=== PATIENT | female | born 1980 | race Caucasian/White ===

== ENCOUNTER 2016-12-24 08:57 | Inpatient (IN) | payer BC ==
[2016-12-22 15:40] LABS: WBC (NOT ORDERED) (RFLEX) 0 (0-5)
[2016-12-22 16:49] LABS: BASOPHILS 0.3 %; BASOPHILS ABSOLUTE 0.02 10/3/uL (0.0-0.16); EOSINOPHILS 2.1 %; EOSINOPHILS ABSOLUTE 0.14 10/3/uL (0.0-0.53); HEMOGLOBIN 11.1 g/dL (12.0-16.0); LYMPHOCYTES 34.6 %; LYMPHOCYTES ABSOLUTE 2.27 10/3/uL (0.67-4.30); MEAN CORPUS HGB CONC 30.8 g/dL (32.0-36.0); MEAN CORPUSCULAR HEMOGLOB 26.4 pg (26.0-34.0); MEAN CORPUSCULAR VOLUME 85.7 fL (80-100); MONOCYTES 5.9 %; MONOCYTES ABSOLUTE 0.39 10/3/uL (0.21-1.20); NEUTROPHILS 57.1 %; NEUTROPHILS ABSOLUTE 3.74 10/3/uL (2.02-8.40); PLATELET COUNT 321 10/3/uL (150-400); RBC DISTRIBUTION WIDTH 15.2 % (12.0-16.0); WHITE BLOOD CELLS 6.6 10/3/uL (4.5-10.5)
[2016-12-22 16:55] LABS: MANUAL DIFF NO %
[2016-12-22 17:01] LABS: BUN (BLOOD UREA NITROGEN) 12 MG/DL (6-23); CALCIUM, SERUM 9.4 MG/DL (8.5-10.4); CHLORIDE, SERUM 111 MMOL/L (96-112); CO2 (CARBON DIOXIDE) 28 MMOL/L (24-34); CREATININE 1.17 MG/DL (0.55-1.02); GFR AFRICAN AMERICAN 68 ML/MIN (>=60); GFR NON AFRICAN AMERICAN 59 ML/MIN (>=60); GLUCOSE, SERUM 80 MG/DL (60-99); SODIUM, SERUM 144 MMOL/L (135-148)
[2016-12-22 18:54] LABS: ASCORBIC ACID (UR NOT ORDER) NEG (NEG); BILIRUBIN, URINE NEGATIVE (NEG); KETONE, URINE NEGATIVE (NEG); LEUKOCYTE ESTERASE(NOT OR NEG (NEG)
--- NOTE | ~2016-12-24 | OP ---
Record Of Operation [facility] [address] [place]. [address] NAME: GAVIOTA NAPOLES : 76 STATUS : DIS IN PAT#: [id number] AGE: 36 ADM/REG DATE : 12/24/16 MR#: [id number] REPORT SERV DATE: 12/26/16 DICTATED BY: LUC MENDOZA DATE: 12/26/16 REPORT STATUS : Draft TRANSCRIBED BY: MODL DATE: 12/26/16 DATE OF PROCEDURE: 12/24/2016 PREOPERATIVE DIAGNOSIS: Abnormal uterine bleeding. POSTOPERATIVE DIAGNOSIS: Abnormal uterine bleeding. PROCEDURE: Robot-assisted laparoscopic hysterectomy with bilateral salpingectomy for uterus weighing greater than 250 g, CPT code 59972; cystoscopy. ANESTHESIA: General. ESTIMATED BLOOD LOSS: 25 mL. CRYSTALLOID: 2100 mL. URINE OUTPUT: 350 mL. DRAINS: Ferrari. FINDINGS: Asymmetrically enlarged uterus approximately 14 cm in size with a residual right ovary and also residual fallopian tubes in place. The patient had a prior endometrial biopsy, which was negative. No other peritoneal deformities were noted. PATHOLOGY: Uterus, uterine cervix, and bilateral fallopian tubes. COMPLICATIONS: None. POSTOPERATIVE PLAN: Extubated to PACU. PROCEDURE IN DETAIL: After informed consent was signed, the patient was taken the operating room and placed in dorsal supine position, where adequate general anesthesia was administered. She was then placed in dorsal lithotomy position in Jed stirrups and prepped and draped in usual fashion. A Ferrari catheter was placed. The uterus sounded and the cervix dilated and the REID uterine manipulator was assembled and deployed. A left upper quadrant incision was made with a scalpel and carried down to the fascia, which was incised, muscle , posterior sheath entered sharply, trocar placed, and abdomen insufflated with CO2 gas. Additional robot trocars were placed in the supraumbilical region, bilateral upper quadrants, and right lateral flank all under direct visualization. The patient was then placed in steep Trendelenburg and the robot docked in usual fashion. Bilateral round ligaments were taken with bipolar cautery, and transected with monopolar scissors, and the pelvic peritoneum was taken down lateral and parallel to the infundibulopelvic ligaments. Her right ovary was surgically absent, but both fallopian tubes were identified and the mesial salpinx taken up to the level of the uterine cornua. With the ureters identified, clips were placed in the origins of the uterine arteries bilaterally. The left IP ligament was then isolated, taken with bipolar cautery, transected Record Of Operation [facility] [address] [place]. [address] NAME: GAVIOTA NAPOLES : 76 STATUS : DIS IN PAT#: [id number] AGE: 36 ADM/REG DATE : 12/24/16 MR#: [id number] REPORT SERV DATE: 12/26/16 DICTATED BY: LUC MENDOZA DATE: 12/26/16 REPORT STATUS : Draft TRANSCRIBED BY: MODVero DATE: 12/26/16 with monopolar scissors, and the broad ligament taken down to the level of the cervix. The right uterine ovarian ligament was then taken with bipolar cautery, and transected with monopolar scissors, and the right ovary with its intact blood supply was then placed into the upper pelvis in the posterior colpotomy was made. Next, the vesicouterine peritoneum was incised and the bladder taken down well beneath the level of the anterior HARJIT ring. The uterine vessels were then taken at the cervix with bipolar cautery, transected with monopolar scissors, and the parametria reflected off the cervical stroma. The anterior and posterior colpotomy was then connected using monopolar scissors, and the uterus, uterine cervix, and bilateral fallopian tubes were then brought out through the vagina. The right ovary was then sutured to the pelvic sidewall with 3-0 PDS suture. Care was taken to ensure the linearity of the right ovarian blood supply. The vagina was then closed with 0 180 V- Loc suture with a running stitch. All instruments removed from the abdomen. The robot was undocked, and CO2 gas evacuated. The Ferrari catheter was removed and the cystoscope placed through the urethra and the bladder distended with appropriate media. Bilateral brisk ureteral jets were noted suggesting bilateral ureteral patency. The cystoscope was removed and the bladder drained. CO2 gas was then reintroduced into the abdomen using and using the laparoscope, the pelvis was re-examined and found to be hemostatic. The laparoscope and all trocars were then removed from the abdomen and the fascia from the left upper quadrant incision was closed with 0 Vicryl suture. CO2 gas had already been evacuated. The skin from all trocar sites was closed with 4-0 Monocryl and Dermabond. The patient tolerated the procedure well, was awakened, extubated, and sent to the PACU in stable condition. MICHELLE/MODL Luc Mendoza MD / [id number] CC: MD MINDY Lucas BRYAN DEE
[~2016-12-24 08:57] MED LIST: HORMONE PO; IRON PO; T PO
[2016-12-25 05:53] LABS: BASOPHILS 0.1 %; BASOPHILS ABSOLUTE 0.01 10/3/uL (0.0-0.16); EOSINOPHILS 0.7 %; EOSINOPHILS ABSOLUTE 0.09 10/3/uL (0.0-0.53); HEMOGLOBIN 9.7 g/dL (12.0-16.0); IMMATURE GRANULOCYTES 0.2 %; IMMATURE GRANULOCYTES ABSOLUTE 0.02 10/3/uL (0.0-0.11); LYMPHOCYTES 6.9 %; LYMPHOCYTES ABSOLUTE 0.87 10/3/uL (0.67-4.30); MEAN CORPUSCULAR HEMOGLOB 26.4 pg (26.0-34.0); MEAN CORPUSCULAR VOLUME 85.1 fL (80-100); MEAN PLATELET VOLUME 10.2 fL (9.2-13.0); MONOCYTES 3.8 %; MONOCYTES ABSOLUTE 0.48 10/3/uL (0.21-1.20); NEUTROPHILS 88.3 %; NEUTROPHILS ABSOLUTE 11.08 10/3/uL (2.02-8.40); PLATELET COUNT 272 10/3/uL (150-400); RBC DISTRIBUTION WIDTH 14.7 % (12.0-16.0); RED CELL COUNT 3.68 10/6/uL (4.0-5.6)
[2016-12-25 05:54] LABS: HEMATOCRIT 31.3 % (36.0-48.0); MANUAL DIFF NO %; WHITE BLOOD CELLS 12.6 10/3/uL (4.5-10.5)
[2016-12-25 06:06] LABS: BUN (BLOOD UREA NITROGEN) 8 MG/DL (6-23); CALCIUM, SERUM 8.7 MG/DL (8.5-10.4); CHLORIDE, SERUM 111 MMOL/L (96-112); CO2 (CARBON DIOXIDE) 24 MMOL/L (24-34); CREATININE 1.02 MG/DL (0.55-1.02); GFR AFRICAN AMERICAN 81 ML/MIN (>=60); GFR NON AFRICAN AMERICAN 70 ML/MIN (>=60); GLUCOSE, SERUM 110 MG/DL (60-99); POTASSIUM, SERUM 5.2 MMOL/L (3.5-5.3); SODIUM, SERUM 142 MMOL/L (135-148)
[2016-12-25] MEDS ORDERED: PCET PO (11:44)
[2016-12-25] MEDS ORDERED: COMP10B PO (11:45)
[2016-12-26] MEDS ORDERED: MYTAB GAS80 MG PO (09:27)
== END 2016-12-26 11:44 | disposition home or self-care (01) | DRG 743 ==
LOC: SDC 08:57 → SDC/OF 12:30 → 4EA 15:03
PROVIDERS: Obstetrics & Gynecology Gynecology
PROC: 0UT74ZZ Resection of Bilateral Fallopian Tubes, Percutaneous Endoscopic Approach (ICD-10-PCS; 2016-12-24)
PROC: 8E0W4CZ Robotic Assisted Procedure of Trunk Region, Percutaneous Endoscopic Approach (ICD-10-PCS; 2016-12-24)
PROC: 0UT94ZZ Resection of Uterus, Percutaneous Endoscopic Approach (ICD-10-PCS; principal; 2016-12-24 10:15)
DX: N93.8 Other specified abnormal uterine and vaginal bleeding (principal)
CPT/HCPCS: 36415; 71020; 80048; 81001; 84703; 85025; 86850; 86900; 86901; 88305; 88307; 93005; A9270-GY; J0694; J2250; J2405; J2550; J2710; J2795; J3010